=== PATIENT | male | born 1995 | race Caucasian/White ===

== ENCOUNTER 2017-06-03 20:23 | Emergency (ER) | payer OTHER ==
[~2017-06-03] VITALS: Ht 182.9 cm; Wt 98.9 kg
[~2017-06-03 20:23] MED LIST: STRATTERA60 MG PO
== END 2017-06-03 22:06 | disposition home or self-care (01) ==
LOC: ER 20:23
DX: H66.91 Otitis media, unspecified, right ear (principal); L30.8 Other specified dermatitis

== ENCOUNTER 2022-03-31 23:31 | Inpatient (IN) | payer OTHER ==
[~2022-03-31] VITALS: Ht 152.4 cm; Wt 99.8 kg
== END 2022-04-02 12:23 | disposition home or self-care (01) | DRG 330 ==
LOC: ER 23:31 → SURG 04-01 11:34 → MEDJ 04-01 21:19 → SURG 04-01 22:09
PROVIDERS: Surgery; ADMIT Internal Medicine; ATTEND Internal Medicine
PROC: 0DTJ4ZZ Resection of Appendix, Percutaneous Endoscopic Approach (ICD-10-PCS; 2022-04-01)
PROC: BW21ZZZ Computerized Tomography (CT Scan) of Abdomen and Pelvis (ICD-10-PCS; 2022-04-01)
PROC: 0DQH4ZZ Repair Cecum, Percutaneous Endoscopic Approach (ICD-10-PCS; principal; 2022-04-01 17:45)
DX: K35.890 Other acute appendicitis without perforation or gangrene (principal); K91.71 Accidental puncture and laceration of a digestive system organ or structure during a digestive system procedure; Z20.822 Contact with and (suspected) exposure to COVID-19